=== PATIENT | female | born 1955 | race Caucasian/White ===

== ENCOUNTER 2016-09-25 07:27 | Outpatient (CLI) | payer MEDICARE, BC | END 2016-09-25 07:28 | disposition home or self-care (01) | DX: R10.11 Right upper quadrant pain (principal) ==

== ENCOUNTER 2017-08-29 16:55 | Outpatient (CLI) | payer MEDICARE, BC | END 2017-08-29 16:56 | disposition EMS.NT | LOC: EMS 16:55 | PROVIDERS: ATTEND Surgery | DX: R56.9 Unspecified convulsions (principal) ==

== ENCOUNTER 2019-10-27 17:41 | Outpatient (CLI) | payer MEDICARE, BC | END 2019-10-27 17:42 | disposition home or self-care (01) | LOC: COV 17:41 | PROVIDERS: ATTEND Family Medicine | DX: R05 Cough (principal); R50.9 Fever, unspecified | CPT/HCPCS: 81599 ==

== ENCOUNTER 2019-11-02 08:06 | Outpatient (CLI) | payer MEDICARE, BC ==
[2019-11-02 09:04] LABS: BASOPHILS % (AUTO) 1.1 %; EOSINOPHILS # (AUTO) 0.1 10^3/uL (0.0-0.7); EOSINOPHILS % (AUTO) 1.9 %; HGB - HEMOGLOBIN 12.2 g/dL (12.0-16.0); LYMPHOCYTES # (AUTO) 1.5 10^3/uL (1.5-3.5); LYMPHOCYTES % (AUTO) 40.7 %; MEAN CORPUSCULAR HEMOGLOBIN 30.8 pg (27.0-31.0); MEAN CORPUSCULAR HGB CONC 32.5 g/dL (32.0-36.0); MEAN CORPUSCULAR VOLUME 94.7 fL (81.0-99.0); MEAN PLATELET VOLUME 10.8 fL (7.9-10.8); MONOCYTES # (AUTO) 0.3 10^3/uL (0.0-1.0); MONOCYTES % (AUTO) 8.1 %; NEUTROPHILS # (AUTO) 1.8 10^3/uL (1.5-6.6); NEUTROPHILS % (AUTO) 47.9 %; PLT - PLATELET COUNT 183 10^3/uL (130-450); RED BLOOD COUNT 3.96 10^6/uL (4.20-5.40); RED CELL DISTRIBUTION WIDTH 12.9 % (12.0-15.0); WHITE BLOOD COUNT 3.7 x10^3/uL (4.8-10.8)
[2019-11-02 09:18] LABS: ALBUMIN/GLOBULIN RATIO 1.7 (1.0-2.2); BILIRUBIN,TOTAL 0.5 mg/dL (0.2-1.0); CALCIUM 8.9 mg/dL (8.5-10.3); CREATININE 0.7 mg/dL (0.4-1.0); TOTAL PROTEIN 6.4 g/dL (6.7-8.2)
== END 2019-11-02 08:07 | disposition home or self-care (01) ==
LOC: LAB 08:06
PROVIDERS: ATTEND Nurse Practitioner Family
DX: R11.2 Nausea with vomiting, unspecified (principal)
CPT/HCPCS: 36415; 80053; 85025

== ENCOUNTER 2020-11-17 08:34 | Outpatient (CLI) | payer MEDICARE, BC | END 2020-11-17 08:35 | disposition home or self-care (01) | LOC: LAB 08:34 | PROVIDERS: ATTEND Family Medicine | DX: E34.9 Endocrine disorder, unspecified (principal); R53.81 Other malaise; R53.83 Other fatigue; N92.0 Excessive and frequent menstruation with regular cycle; E03.8 Other specified hypothyroidism; M79.10 Myalgia, unspecified site; E78.5 Hyperlipidemia, unspecified; L30.9 Dermatitis, unspecified; G47.9 Sleep disorder, unspecified | CPT/HCPCS: 36415 ==

== ENCOUNTER 2021-02-09 08:54 | Outpatient (CLI) | payer BC, MEDICARE | END 2021-02-09 08:55 | disposition home or self-care (01) | LOC: LAB 08:54 | DX: Z01.89 Encounter for other specified special examinations (principal) | CPT/HCPCS: 36415 ==

== ENCOUNTER 2021-02-21 10:04 | Outpatient (CLI) | payer SELFPAY | END 2021-02-21 10:05 | disposition home or self-care (01) | LOC: LAB 10:04 | DX: Z01.89 Encounter for other specified special examinations (principal) | CPT/HCPCS: 36415 ==

== ENCOUNTER 2021-10-09 07:48 | Outpatient (CLI) | payer SELFPAY | END 2021-10-09 07:49 | disposition home or self-care (01) | LOC: LAB 07:48 | DX: Z01.89 Encounter for other specified special examinations (principal) | CPT/HCPCS: 36415 ==

== ENCOUNTER 2021-11-28 07:52 | Outpatient (CLI) | payer SELFPAY | END 2021-11-28 07:53 | disposition home or self-care (01) | LOC: LAB 07:52 | PROVIDERS: ATTEND Registered Nurse | DX: Z01.89 Encounter for other specified special examinations (principal) | CPT/HCPCS: 36415 ==

== ENCOUNTER 2022-09-05 08:29 | Outpatient (CLI) | payer SELFPAY | END 2022-09-05 08:30 | disposition home or self-care (01) | LOC: LAB 08:29 | PROVIDERS: ATTEND Registered Nurse | DX: J32.9 Chronic sinusitis, unspecified (principal); G43.909 Migraine, unspecified, not intractable, without status migrainosus; R11.2 Nausea with vomiting, unspecified | CPT/HCPCS: 36415 ==

== ENCOUNTER 2023-10-25 08:00 | Outpatient (CLI) | payer MEDICARE, BC | END 2023-10-25 23:59 | disposition home or self-care (01) | LOC: LAB 08:00 | PROVIDERS: ATTEND Urology | DX: N39.0 Urinary tract infection, site not specified (principal) | CPT/HCPCS: 87086; 87181 ==

== ENCOUNTER 2023-11-01 13:04 | Outpatient (CLI) | payer MEDICARE, BC ==
[2023-11-01] MEDS ORDERED: iohexoL-300 150 ML BOTTLE ONE (13:45)
[2023-11-01] MEDS: iohexoL-300 150 ML BOTTLE IVP ONE (16:17)
--- NOTE | 2023-11-03 08:43 | CT Report ---
PROCEDURE: IVP INDICATIONS: L HYDRONEPHROSIS CONTRAST: 140ml omni 300 TECHNIQUE: A [address] of the abdomen and pelvis was performed. Non-contrast and contrast images were recorded and evaluated at appropriate window settings. Images were recorded and evaluated at appropriate windo w settings. Reformats: coronal and sagittal. For radiation dose reduction, the following was used: au tomated exposure control, adjustment of convex left scoliosis. 3 interval casting with improved align ment at the tibia and fibula fractures. MA and/or kV according to patient size. COMPARISON: CT IVP, 10/05/2023. CT abdomen and pelvis 10/05/2023. FINDINGS: Image quality: Diagnostic. Urinary system: There is a left ureter stent in expected position. There is mild left hydronephrosis . Mild left perinephric stranding and periureteral stranding. Left perinephric/periureteral fluid cor rection (urine leak) seen on the last exam is resolved. Both kidneys are normal in size. No urinary stones. No solid masses or complex cysts which require fo llow up. The opacified renal calyces and ureters appear normal, without filling defect. Bladder wall thickness is normal, accounting for underdistention. No calcified bladder stones. No long ling defect within the opacified bladder. OTHER Lower chest: Small left effusion with left basilar atelectasis.. Liver: No solid mass. Gallbladder and biliary tree: Normal gallbladder. No gallstones. No biliary dilation. Spleen: No splenomegaly. Pancreas: No pancreatic ductal dilation. Adrenals: No adrenal nodule. Stomach, bowel and peritoneum: No bowel distension. No pathologic free fluid. Abdominal Lymph nodes: No central or retroperitoneal adenopathy. Vessels: Unremarkable. Reproductive organs: Unremarkable. Pelvic Lymph nodes: Unremarkable. Bones: No aggressive osseous abnormality. Moderate scoliosis and spondylitic changes in lumbar spine. Other: None. IMPRESSION: 1, interval placement of a left ureteral stent which is in expected position. There is mild left hydr onephrosis with mild left perinephric stranding and periureteral stranding, Left perinephric/periuret eral fluid correction seen on the last exam is resolved. 2. Small left pleural effusion with left basilar atelectasis. Reviewed by: Yue Roldan MD on 11/03/2023 8:42 AM PDT Approved by: Yue Roldan MD on 11/03/2023 8:42 AM PDT Station ID: [id number]
== END 2023-11-01 13:05 | disposition home or self-care (01) ==
LOC: DI 13:04
PROVIDERS: ATTEND Urology
DX: N13.30 Unspecified hydronephrosis (principal); N28.9 Disorder of kidney and ureter, unspecified; R63.4 Abnormal weight loss; Z96.0 Presence of urogenital implants; R63.8 Other symptoms and signs concerning food and fluid intake; J90 Pleural effusion, not elsewhere classified; J98.11 Atelectasis
CPT/HCPCS: Q9967

== ENCOUNTER 2023-11-12 10:10 | Day surgery (SDC) | payer MEDICARE, BC ==
[~2023-11-12 10:10] MED LIST: ceFAZolin 1 GM VIAL ONE
[2023-11-12] MEDS: LACTATED RINGERS 1,000 ML IV ONE (10:35)
[2023-11-12] MEDS ORDERED: MIDAZOLAM 2 MG/2 ML VIAL ONE ×2 (11:08→11:33)
[2023-11-12] MEDS ORDERED: PROPOFOL 200 MG/20 ML VIAL IVP ONE ×2 (11:08→11:32)
[2023-11-12] MEDS ORDERED: fentaNYL 100 MCG/2 ML VIAL ONE (11:08)
--- NOTE | 2023-11-12 11:23 | ANESTHESIA ---
Pre-Anesthesia VS, & Labs - Diagnosis L ureter stent - Procedure Cysto, L ureter stent exchange Vital Signs: Temp Pulse Resp BP Pulse Ox O2 Flow Rate 36.4 C L 64 16 127/71 100 11/12/23 10:36 11/12/23 10:36 11/12/23 10:36 11/12/23 10:36 11/12/23 10:36 Height: 5 ft 1 in Weight (kg): 42.4 kg Body Mass Index: 17.6 BMI Classification: Underweight - NPO >8 hours - Is Patient ?: No Home Medications and Allergies Home Medications: Ambulatory Orders cephALEXin [Keflex] 250 mg PO DAILY 11/04/23 oxyBUTYnin chloride [Oxybutynin Chloride] 5 mg PO TID 11/04/23 predniSONE [Deltasone] 5 mg PO PRN PRN 11/04/23 Progesterone, Micronized [Prometrium] 100 - 200 mg PO DAILY PM 10/05/23 Rizatriptan Benzoate [Rizatriptan] 10 mg PO DAILY PRN 10/05/23 cephALEXin [Keflex] 250 mg PO DAILY 11/04/23 oxyBUTYnin chloride [Oxybutynin Chloride] 5 mg PO TID 11/04/23 predniSONE [Deltasone] 5 mg PO PRN PRN 11/04/23 Allergies/Adverse Reactions: Allergies Allergy/AdvReac Type Severity Reaction Status Date / Time duloxetine [From Cymbalta] Allergy suicidal Verified 11/12/23 10:41 gabapentin [From Neurontin] Allergy trouble Verified 11/12/23 10:41 breathing/couldn't walk gluten Allergy Unknown Verified 11/12/23 10:41 pregabalin [From Lyrica] Allergy trouble Verified 11/12/23 10:41 breathing/ couldn't walk Sulfa (Sulfonamide Allergy Hives Verified 11/12/23 10:41 Antibiotics) dairy AdvReac Rash Uncoded 11/12/23 10:42 Anes History & Medical History - Anesthetic History Anesthesia Complications: reports: Post-Operative Nausea/Vomiting Family history of Anesthesia Complications: Denies Family history of Malignant Hyperthermia: Denies - Medical History Cardiovascular: reports: Other Pulmonary: reports: None Urinary: reports: Other Musculoskeletal: reports: None Endocrine/Autoimmune: reports: Other Skin: reports: None Smoking Status: Never smoker - Surgical History Gynecologic: reports: Oophrectomy, Other Exam General: Alert, Oriented x3, Cooperative Dental: WNL Mouth Openin Fingerbreadth Neck Mobility: Normal Mallampati classification: I Thyromental Distance: 4-6 cm Respiratory: Lungs clear Cardiovascular: Regular rate Plan Anesthesia Type: General Consent for Procedure(s) Verified and Reviewed: Yes Code Status: Attempt Resuscitation ASA classification: 2-Mild systemic disease Is this case an emergency?: No
[2023-11-12] MEDS ORDERED: PROPOFOL 500 MG/50 ML 500 MG/50 ML VIAL ONE (11:32)
[2023-11-12] MEDS ORDERED: KETAMINE 200 MG/20 ML VIAL ONE (11:33)
[2023-11-12] MEDS ORDERED: LIDOCAINE-PF 2% 10 ML AMP SUBQ ONE (11:33)
[2023-11-12] MEDS ORDERED: LIDOCAINE-MPF 2% 5 ML VIAL ONE (11:34)
[2023-11-12] MEDS ORDERED: LIDOCAINE 2% URO-JET 5 ML SYRINGE UR ONE (11:45)
[2023-11-12] MEDS ORDERED: DEXAMETHASONE 4 MG/ML VIAL ONE (12:08)
[2023-11-12] MEDS ORDERED: ONDANSETRON 4 MG/2 ML VIAL ONE (12:08)
[2023-11-12] MEDS: iohexoL-240 10 ML VIAL IVP ONE (12:20)
[2023-11-12] MEDS: LIDOCAINE 2% URO-JET 5 ML SYRINGE UR ONE (12:20)
[2023-11-12] MEDS ORDERED: KETOROLAC 30 MG/ML VIAL ONE (12:30)
[2023-11-12] MEDS: LACTATED RINGERS 400 ML IV ONE (12:44)
[2023-11-12] MEDS ORDERED: ONDANSETRON 4 MG/2 ML VIAL IVP PRN ×2 (12:57→13:00)
[2023-11-12] MEDS ORDERED: HYDROmorphone 0.5 MG/0.5 ML SYRINGE IVP PRN (13:00)
[2023-11-12] MEDS ORDERED: ePHEDrine 50 MG/ML VIAL IVP PRN (13:00)
[2023-11-12] MEDS ORDERED: NALOXONE 0.4 MG/ML VIAL IVP PRN (13:00)
[2023-11-12] MEDS ORDERED: MORPHINE 2 MG/ML CARPUJECT IVP PRN (13:00)
[2023-11-12] MEDS ORDERED: ATROPINE ABBOJECT 1 MG/10 ML SYRINGE IVP PRN (13:00)
[2023-11-12] MEDS ORDERED: METOCLOPRAMIDE 10 MG/2 ML VIAL IVP PRN (13:00)
[2023-11-12] MEDS ORDERED: fentaNYL 100 MCG/2 ML VIAL IVP PRN (13:00)
[2023-11-12] MEDS ORDERED: LACTATED RINGERS 1,000 ML IV SCH (13:00)
--- NOTE | 2023-11-12 13:16 | Discharge Plan ---
Discharge Plan Problem Reviewed?: Yes Disposition: Home, Self Care Condition: Good Prescriptions: Docusate Sodium 100Mg Capsule [Colace 100Mg Capsule] 100 mg PO DAILY #7 cap cephALEXin [Keflex] 500 mg PO ONCE #1 cap Morphine ER [Ms Contin] 15 mg PO Q12H PRN #3 tablet PRN Reason: Pain >8 Diet: Regular Activity Restrictions: No Restrictions Shower Restrictions: No Driving Restrictions: Yes (no driving when taking pain medications) Instruction Topics: Stents Ureteral Additional Instructions or Follow Up instructions: You will be contacted for follow-up in 3 to 4 weeks time for cystoscopy and stent removal in the office. Please take antibiotic as prescribed on the way to that appointment No Smoking: If you smoke, Please STOP! Call for help. Follow-up with: Kristen Masters ARNP [Primary Care Provider] - Dylan Christianson MD [Provider Admit Priv/Credential] -
--- NOTE | 2023-11-12 13:25 | OPERATIVE REPORT ---
Operative Report - General Procedure Date: 11/12/23 Planned Procedure: Cystoscopy, left ureteroscopy, stent exchange, retrograde pyelogram Pre-Op Diagnosis: Left ureteral injury Procedure Performed: Cystoscopy, left ureteroscopy, ureteral biopsy, stent exchange, retrograde pyelogram Post Op Diagnosis: Left ureteropelvic junction obstruction, ureteral mass - Procedure Note Primary Surgeon: Sammy Anesthesia Provider: WES Anand Anesthesia Technique: General LMA Pathology: left kidney urine cytology left ureteral biopsy Findings: 2 mm papillary polyp which appeared benign in the proximal ureter, biopsied Retrograde pyelogram with clear evidence of UPJ obstruction of the left Complications: none - Other Other Information/Narrative: After informed sent was obtained the patient was brought to the OR and laid in the supine position. The patient was anesthetized per anesthesia protocols and prepped and draped in usual sterile fashion in the dorsolithotomy position. A formal timeout was performed reconfirming the patient, procedure and laterality. A 22 Bengali scope was advanced easily into urinary bladder. Bladder was inspected and full and there were no masses, lesions or other concerns. Stent was emanating from left ureteral orifice. A sensor wire was placed next this under fluoroscopic guidance to the kidney. Her old stent was removed. A flexible ureteroscope was advanced up next to this wire through the ureter. In the proximal ureter we identified a 2 mm polyp which did appear benign but we plans to biopsy this regardless. We advanced up to the kidney where there was a clear transition between the ureter and pelvis with redundant tissue there consistent with a UPJ obstruction. The kidney itself was severely hydronephrotic. We sent a sample of kidney urine as a left kidney urine cytology. The kidney was inspected and full and there were no masses, lesions or other concerns. There was a 5mm radiopacity seen on fluoroscopy but this was explored and was not thought to be in the kidney. A retrograde pyelogram was performed showing again a severely hydronephrotic kidney with an abrupt transition at the UPJ. We then transited slightly more distally to we saw the polyp again this was biopsied using a Piranha biopsy and sent for analysis. The kidney was shown to still not have drained any of the contrast. Again consistent with UPJ obstruction. Under cystoscopic and fluoroscopic guidance a 6 Bengali 24 cm double-J ureteral stent was placed with good curling of the kidney and good curling noted in the bladder. The bladder was emptied and a Uro-Jet was placed. This concluded the procedure and the patient tolerated the procedure well. She will follow-up in 3 to 4 weeks time for cystoscopy and stent removal and discussion of her UPJ obstruction, along with pathology discussion
[2023-11-12 13:42] VITALS: BP 121/84; O2SAT 97
--- NOTE | 2023-11-12 15:04 | XRAY Report ---
PROCEDURE: OR C-Arm Procedure INDICATIONS: RETROGRADE PYELOGRAM FLUORO TIME: 000.2 TECHNIQUE: Fluoroscopic images submitted for interpretation. COMPARISON: CT 10/30/2023. FINDINGS: Fluoroscopic images submitted for a left nephroureteral stent placement. There is moderate left-sided hydronephrosis. The stent tip projects over the superior calyx. IMPRESSION: Fluoroscopic guidance for a left nephroureteral stent placement. Reviewed by: Galdino Street MD on 11/12/2023 3:02 PM PDT Approved by: Galdino Street MD on 11/12/2023 3:02 PM PDT Station ID: [id number]
--- NOTE | 2023-11-12 19:02 | ANESTHESIA POST OP EVALUATION ---
Anesthesia Post Eval - Post Anesthesia Eval Vitals: Last Vital Signs Temp 36.5 C 11/12/23 13:30 Pulse 80 11/12/23 13:30 Resp 14 11/12/23 13:30 BP 121/84 H 11/12/23 13:30 Pulse Ox 97 11/12/23 13:30 O2 Flow Rate CV Function Including HR & BP: Stable Pain Control: Satisfactory Nausea & Vomiting: Negative Mental Status: Baseline Respiratory Status: Airway Patent Hydration Status: Satisfactory Anesthesia Complications: None
== END 2023-11-12 10:11 | disposition home or self-care (01) ==
LOC: SDS 10:10
PROVIDERS: ATTEND Urology
PROC: 0TB78ZX Excision of Left Ureter, Via Natural or Artificial Opening Endoscopic, Diagnostic (ICD-10-PCS; principal; 2023-11-12 11:15)
DX: N13.5 Crossing vessel and stricture of ureter without hydronephrosis (principal)
CPT/HCPCS: 52332; 52354; C2617; J3490; J7120; Q9966

== ENCOUNTER 2024-02-11 08:04 | Outpatient (CLI) | payer MEDICARE, BC | END 2024-02-11 08:05 | disposition home or self-care (01) | LOC: LAB 08:04 | DX: Z01.89 Encounter for other specified special examinations (principal) | CPT/HCPCS: 36415 ==